=== PATIENT | male | born 1980 | race Caucasian/White ===

== ENCOUNTER 2018-02-01 13:51 | Emergency (ER) | payer SELFPAY ==
[~2018-02-01] VITALS: Ht 185.4 cm; Wt 84.8 kg
[2018-02-01] MEDS ORDERED: CYCLOBENZAPRINE 10 MG TABLET. PO ONE (14:45)
[2018-02-01] MEDS ORDERED: IBUPROFEN 800 MG TABLET. PO ONE (14:45)
[2018-02-01] MEDS ORDERED: IBUP800T19 PO (14:45)
[2018-02-01] MEDS ORDERED: CYCL-331 PO (14:45)
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
[2018-02-01 15:10] VITALS: BP 122/64
== END 2018-02-01 15:10 | disposition home or self-care (01) ==
LOC: ER 13:51
DX: S16.1XXA Strain of muscle, fascia and tendon at neck level, initial encounter (principal); S39.012A Strain of muscle, fascia and tendon of lower back, initial encounter; G89.29 Other chronic pain; F17.210 Nicotine dependence, cigarettes, uncomplicated; V73.6XXA Passenger on bus injured in collision with car, pick-up truck or van in traffic accident, initial encounter; Y93.89 Activity, other specified; Y99.8 Other external cause status; Y92.488 Other paved roadways as the place of occurrence of the external cause
CPT/HCPCS: 99283

== ENCOUNTER 2018-04-02 06:03 | Emergency (ER) | payer OTHER ==
[~2018-04-02] VITALS: Ht 185.4 cm; Wt 82.8 kg
[~2018-04-02 06:03] MED LIST: CYCL-331 PO; IBUP800T19 PO
[2018-04-02 06:27] LABS: BASO # 0.1 x10^3/uL (0.0-0.2); BASO % 1 % (0-3); EOS % 0 % (0-3); HEMATOCRIT 39.5 % (39.0-53.0); HEMOGLOBIN 14.2 g/dL (13.0-17.5); LYMPH # 0.9 x10^3/uL (1.0-4.8); LYMPH % 14 % (24-48); MEAN CORPUSCULAR HEMOGLOBIN 31 pg (25-35); MEAN CORPUSCULAR HGB CONC 36 g/dL (31-37); MEAN CORPUSCULAR VOLUME 85 fL (79-100); MONO # 0.8 x10^3/uL (0.0-1.1); MONO % 11 % (0-9); NEUT # 5.2 x10^3uL (1.8-7.7); NEUT % 74 % (31-73); PLATELET COUNT 261 x10^3/uL (140-400); RED BLOOD COUNT 4.66 x10^6/uL (4.30-5.70); RED CELL DISTRIBUTION WIDTH 13.1 % (11.5-14.5)
[2018-04-02] MEDS ORDERED: IV NORMAL SALINE 1,000ML 1,000 ML IV ONE (06:30)
[2018-04-02 06:31] LABS: CALCIUM 8.7 mg/dL (8.5-10.1); GFR 84.5; POTASSIUM 3.2 mmol/L (3.5-5.1)
--- NOTE | 2018-04-02 06:34 | PHYS DOC ---
Past History Past Medical History: Seizure, Other Additional Past Medical Histor: chronic back pain Past Surgical History: No Surgical History Smoking: Cigarettes Alcohol Use: Occasionally Drug Use: None Adult General Chief Complaint Chief Complaint: SEIZURE HPI HPI 37 male presents via EMS with seizure. The seizure was described as tonic clonic jerking of the whole body. Patient is staying at a senior living house and he was found on the floor having a seizure this morning. They called EMS. EMS states that they witnessed the patient seize "a couple of times". He was not seizing when he arrived in the IV. There were no medications reportedly given. The patient is still post ictal, but able to answer most simple questions. He does not clearly remember falling on the floor, but knows he has had a seizure. His last seizure was 1-2 weeks ago. He is currently complaining of right rib pain and a right-sided headache. He denies any recreational drug use or alcohol. He has documentation showing that he has been taking his Keppra daily. It does not indicate the dosage of his pills but that he takes them BID. Review of Systems Review of Systems Constitutional: Denies fever or chills [] Eyes: Denies change in visual acuity, redness, or eye pain [] HENT: Denies nasal congestion or sore throat. Complains of headache [] Respiratory: Denies cough or shortness of breath [] Cardiovascular: No additional information not addressed in HPI [] GI: Denies abdominal pain, nausea, vomiting, bloody stools or diarrhea [] : Denies dysuria or hematuria [] Musculoskeletal: right rib pain [] Integument: Denies rash or skin lesions [] Neurologic: Denies headache, focal weakness or sensory changes [] Endocrine: Denies polyuria or polydipsia [] All other systems were reviewed and found to be within normal limits, except as documented in this note. Allergies Allergies Allergies Coded Allergies Type Severity Reaction Last Updated Verified No Known Drug Allergies 02/01/18 No Physical Exam Physical Exam Constitutional: Well developed, well nourished, no acute distress, non-toxic appearance. [] HENT: Normocephalic, atraumatic, bilateral external ears normal, oropharynx moist, no oral exudates, nose normal. [] Eyes: PERRLA, EOMI, conjunctiva normal, no discharge. [] Neck: Normal range of motion, no tenderness, supple, no stridor. [] Cardiovascular:Heart rate regular rhythm, no murmur [] Lungs & Thorax: Bilateral breath sounds clear to auscultation [] Abdomen: Bowel sounds normal, soft, no tenderness, no masses, no pulsatile masses. [] Skin: Warm, dry, no erythema, no rash. [] Back: No tenderness, no CVA tenderness. [] Extremities: Right hand in a splint and Phillip wrap.[] Neurologic: Alert and oriented X 3, normal motor function, normal sensory function, no focal deficits noted. Post ictal with slow responses and some repeating of words [] Psychologic: Affect subdued, judgement normal, mood normal. [] EKG EKG Sinus rhythm, rate 96, normal axis, no ST elevations or depressions.[] Radiology/Procedures Radiology/Procedures CT head without contrast TECHNIQUE: [address] imaging skull base to vertex. HISTORY: Fall, seizure. FINDINGS: No intracranial hemorrhage, mass, hydrocephalus, extra-axial fluid collections or infarction. No acute ischemic changes evident. Partial opacification ethmoid sinuses. Orbits, mastoids and bones are unremarkable. IMPRESSION: No acute intracranial CT abnormality. Exposure: One or more of the following individualized dose reduction techniques were utilized for this examination: 1. Automated exposure control 2. Adjustment of the mA and/or kV according to patient size 3. Use of iterative reconstruction technique Electronically signed by: Steffen Davies MD (04/02/2018 6:59 AM) [facility][] AP chest and right rib radiographs, 5 total images History: Lateral right rib pain, seizure history. Comparison: None. Findings: Cardiomediastinal silhouette is within normal limits for size. Bilateral lung agee appear clear without evidence of infiltrate, effusion, or pneumothorax. No displaced rib fractures are identified. Impression: 1. No acute abnormality identified in the chest. Electronically signed by: Gaurav Tee MD (04/02/2018 7:39 AM) [facility] Course & Med Decision Making Course & Med Decision Making Pertinent Labs and Imaging studies reviewed. (See chart for details) Head CT is negative. Rib x-ray is negative. The patient is more alert and aware at this time. He does not remember the events surrounding his seizure, but states that this is the third of fourth year he's had in the last few months. He was previously on Dilantin was not well controlled and she is having side effects. He was switched to Keppra, but he is not sure of the dose is correct yet. He has had his level checked, but is unsure of the result. He has not had any recent medication changes. He had a seizure about a week ago but his Keppra dose was kept the same. The patient's urinalysis is negative for infection. UDS shows amphetamine/methamphetamine positive. The rest is negative. I discussed the case with Dr. Estevez, the neurologist and he recommended increasing the patient's Keppra to 750 twice a day. He would also like to see the patient in his office this week. We'll give him a dose of 750 here in the ED. [] Dragon Disclaimer Dragon Disclaimer This electronic medical record was generated, in whole or in part, using a voice recognition dictation system. Departure Departure: Referrals: PCP,NO (PCP) Scripts Levetiracetam (KEPPRA) 500 Mg Tablet 1.5 TAB PO BID MDD 1500mg, #60 TAB 5 Refills Prov: PRIYANK PARADA DO 04/02/18 PRIYANK PARADA DO April 02, 2018 06:34
[2018-04-02] MEDS ORDERED: ONDANSETRON ODT 4 MG TAB.RAPDIS ONE (06:46)
[2018-04-02] MEDS ORDERED: PROCHLORPERAZINE 10 MG/2 ML VIAL. IV ONE (07:00)
--- NOTE | 2018-04-02 07:02 | RAD ---
CT head without contrast TECHNIQUE: [address] imaging skull base to vertex. HISTORY: Fall, seizure. FINDINGS: No intracranial hemorrhage, mass, hydrocephalus, extra-axial fluid collections or infarction. No acute ischemic changes evident. Partial opacification ethmoid sinuses. Orbits, mastoids and bones are unremarkable. IMPRESSION: No acute intracranial CT abnormality. Exposure: One or more of the following individualized dose reduction techniques were utilized for this examination: 1. Automated exposure control 2. Adjustment of the mA and/or kV according to patient size 3. Use of iterative reconstruction technique Electronically signed by: Steffen Davies MD (04/02/2018 6:59 AM) [facility]
--- NOTE | 2018-04-02 07:13 | EKG ---
[address] [address] Test Date: 2018-04-02 Test Time: 07:09:13 Pat Name: SERGIO CHAVEZ Department: Room: Gender: M [employer] Worker: : 1980 Requested By: PRIYANK PARADA Order Number: [id number] Reading MD: Measurements Intervals [place] Rate: 96 P: 66 HI: 152 QRS: 42 QRSD: 100 T: 28 QT: 358 QTc: 453 Interpretive Statements SINUS RHYTHM QRS(T) CONTOUR ABNORMALITY CONSIDER ANTEROSEPTAL MYOCARDIAL DAMAGE CONSIDER INFERIOR MYOCARDIAL DAMAGE POSSIBLY ABNORMAL ECG RI6.01 No previous ECG available for comparison
--- NOTE | 2018-04-02 07:42 | RAD ---
AP chest and right rib radiographs, 5 total images History: Lateral right rib pain, seizure history. Comparison: None. Findings: Cardiomediastinal silhouette is within normal limits for size. Bilateral lung agee appear clear without evidence of infiltrate, effusion, or pneumothorax. No displaced rib fractures are identified. Impression: 1. No acute abnormality identified in the chest. Electronically signed by: Gaurav Tee MD (04/02/2018 7:39 AM) [facility]
[2018-04-02 08:32] LABS: BILIRUBIN,URINE NEG (NEG); CLARITY,URINE CLEAR; COLOR,URINE AMBER; GLUCOSE,URINE NEG (NEG); NITRITE,URINE NEG (NEG); UROBILINOGEN,URINE 4 mg/dL (0.2 mg/dL)
[2018-04-02 08:33] LABS: BACTERIA,URINE 0 /HPF (0-FEW); RBC,URINE OCC /HPF (0-2); SQUAMOUS EPITHELIAL CELL,UR OCC /LPF; WBC,URINE 0 /HPF (0-4)
[2018-04-02 08:37] LABS: AMPHETAMINE/METHAMPHETAMINE POS (NEG); BARBITURATES NEG (NEG); BENZODIAZEPINES NEG (NEG); CANNABINOIDS NEG (NEG); COCAINE NEG (NEG); METHADONE NEG (NEG); OPIATES NEG (NEG); PHENCYCLIDINE NEG (NEG)
[2018-04-02 08:38] VITALS: BP 119/70
[2018-04-02] MEDS ORDERED: LEVE500T56 PO (08:54)
[2018-04-02] MEDS ORDERED: levETIRAcetam 500 MG TABLET PO SCH (09:00)
[2018-04-02] MEDS ORDERED: levETIRAcetam 250 MG TABLET PO ONE (09:00)
== END 2018-04-02 09:05 | disposition home or self-care (01) ==
LOC: ER 06:03
DX: R56.9 Unspecified convulsions (principal); G89.29 Other chronic pain; R07.81 Pleurodynia; F17.210 Nicotine dependence, cigarettes, uncomplicated
CPT/HCPCS: 36415; 70450; 71100; 80048; 80177; 80307; 81001; 85025; 93005; 96374; 99285; J0780; G0479; J7030

== ENCOUNTER → 2020-07-30 | Outpatient (CLI) | payer OTHER ==
[~2020-07-30] MED LIST changes: +LEVE500T56 PO
--- NOTE | 2020-07-30 09:34 | RAD ---
EXAMINATION: FINGER(S) RIGHT CLINICAL HISTORY: Right finger pain following injury TECHNIQUE: FINGER(S) RIGHT Number of Images/Views: 3 COMPARISON: Right hand radiographs 03/30/2018 FINDINGS: Healing subacute nondisplaced oblique fracture through the third middle phalanx with intra-articular extension to the DIP joint. Mild surrounding periosteal reaction with persistent radiolucent fracture plane. Remote posttraumatic changes in the fourth proximal phalanx and fifth metacarpal, similar to prior study. Joint spaces and alignment otherwise maintained. Mild soft tissue swelling in the long finger. IMPRESSION: Healing nondisplaced third middle phalanx intra-articular fracture. Electronically signed by: Juve Bhatt DO (07/30/2020 9:31 AM) [id number]
== END | disposition home or self-care (01) ==
LOC: DXRAD 08:07 → EEVIPCON 08:07
PROVIDERS: ATTEND Physician Assistant
DX: S62.652A Nondisplaced fracture of middle phalanx of right middle finger, initial encounter for closed fracture (principal); X58.XXXA Exposure to other specified factors, initial encounter; Y93.89 Activity, other specified; Y92.89 Other specified places as the place of occurrence of the external cause; Y99.8 Other external cause status
CPT/HCPCS: 73140

== ENCOUNTER → 2020-09-10 | Outpatient (CLI) | payer OTHER ==
--- NOTE | 2020-09-10 13:19 | RAD ---
Three views right third finger: Clinical History: Reason: RIGHT 3RD FINGER INJURY / Spl. Instructions: / History: . Technique: AP view of the hand, as well as lateral and oblique collimated views of the middle finger were obtained. Comparison: None. Findings: There is an oblique minimally displaced fractures of the middle phalanx of the middle finger. There is a avulsion of the distal lateral corner of the middle phalanx. There is an exostosis arising from the medial cortex of the distal aspect of the proximal phalanx of the fourth finger. Impression: 1. Oblique minimally displaced fracture through the mid and distal aspect of the middle phalanx of the middle finger. 2. Avulsion injury to the distal lateral corner of the middle phalanx of the middle finger. 3. Benign exostosis arising from the lateral distal aspect of the proximal phalanx of the fourth finger. Electronically signed by: Rony Arias III, MD (09/10/2020 1:17 PM) [facility]
== END ==
LOC: DXRAD 08:01 → EEVIPCON 08:01
PROVIDERS: ATTEND Physician Assistant
DX: S62.652A Nondisplaced fracture of middle phalanx of right middle finger, initial encounter for closed fracture (principal); S61.302A Unspecified open wound of right middle finger with damage to nail, initial encounter; X58.XXXA Exposure to other specified factors, initial encounter; Y93.89 Activity, other specified; Y92.89 Other specified places as the place of occurrence of the external cause; Y99.8 Other external cause status
CPT/HCPCS: 73140